=== PATIENT | male | born 1970 | race Caucasian/White ===

== ENCOUNTER 2021-01-21 15:05 | Emergency (ER) | payer OTHER ==
[~2021-01-21] VITALS: Ht 182.9 cm; Wt 99.8 kg
[2021-01-21 15:10] VITALS: BP 161/106
--- NOTE | 2021-01-21 15:19 | NUR ---
Patient ambulated to bed 11. RN evaluating the patient at bedside.
--- NOTE | 2021-01-21 15:33 | NUR ---
50 YEAR OLD MALE COMPLAINS OF JAW TIGHTNESS X MORNING. PT STATES HE WAS EATING A [place] BAR AND NOTICED HIS JAW GOT VERY TIGHT. PT STATES NOT BAD NOW BUT STILL SWELLING. PT DENIES SOB. PT AOX4, BREATHING EVEN AND UNLABORED, SKIN WARM AND DRY. BED IN LOWEST POSITION, LOCKED, BED RAIL UPX1. PMH - DENIES ALLERGIES - NKA
[2021-01-21] MEDS ORDERED: IBUP-2213 PO (15:44)
[2021-01-21 15:59] VITALS: BP 161/106
--- NOTE | 2021-01-21 16:00 | NUR ---
Patient discharged with v/s stable. Written and verbal after care instructions about muscle cramps and spasms, musculoskeletal pain given and explained. Patient verbalized understanding. Ambulatory with steady gait. All questions addressed prior to discharge. Advised to follow up with PMD.
== END 2021-01-21 16:00 | disposition home or self-care (01) ==
LOC: MED 15:05
DX: R68.84 Jaw pain (principal); M62.838 Other muscle spasm; Z79.899 Other long term (current) drug therapy
CPT/HCPCS: 99282